=== PATIENT | female | born 1975 | race Caucasian/White ===

== ENCOUNTER 2020-02-26 12:03 | Emergency (ER) | payer SELFPAY ==
[~2020-02-26] VITALS: Ht 149.9 cm; Wt 45.4 kg
== END 2020-02-26 14:10 | disposition home or self-care (01) ==
LOC: ER 12:14
DX: R51.9 Headache, unspecified (principal); W01.198A Fall on same level from slipping, tripping and stumbling with subsequent striking against other object, initial encounter; Y93.01 Activity, walking, marching and hiking; Y92.008 Other place in unspecified non-institutional (private) residence as the place of occurrence of the external cause; R91.8 Other nonspecific abnormal finding of lung field; Z87.891 Personal history of nicotine dependence
CPT/HCPCS: 70450; 72125; 99283

== ENCOUNTER 2021-04-11 10:03 | Emergency (ER) | payer SELFPAY ==
[~2021-04-11] VITALS: Ht 149.9 cm; Wt 63.5 kg
[2021-04-11] MEDS ORDERED: KETOROLAC TROMETHAMINE 30 MG/ML VIAL IV STA (11:07)
[2021-04-11] MEDS ORDERED: ONDANSETRON HCL INJ 2MG/ML 2ML 2 MG/ML VIAL IV STA (11:07)
[2021-04-11] MEDS ORDERED: TAMSULOSIN HCL 0.4 MG CAP PO ONE (11:15)
[2021-04-11] MEDS ORDERED: SODIUM CHLORIDE 0.9% 1000ML 1,000 ML IV ONE (11:15)
[2021-04-11 11:18] LABS: CLARITY,URINE CLOUDY (CLEAR); COLOR,URINE YELLOW (YELLOW); KETONES,URINE NEGATIVE (NEGATIVE); LEUKOCYTE ESTERASE ,URINE LARGE (NEGATIVE); NITRITE,URINE NEGATIVE (NEGATIVE); PROTEIN,URINE DIPSTICK 1+ (NEGATIVE); URINE UROBILINOGEN 0.2 mg/dL (0.2 - 1)
[2021-04-11 11:28] LABS: BACTERIA,URINE FEW /HPF; EPITHELIAL CELLS,URINE FEW /LPF; RBC,URINE 21-50 /HPF (0-5); WBC,URINE (MAN) >50 /HPF (0-5)
[2021-04-11] MEDS ORDERED: CEFTRIAXONE 1 GM VIAL IM ONE (12:00)
[2021-04-11 12:10] LABS: BASOPHILS # (AUTO) 0.1 (0.0-0.1); BASOPHILS % 0.5 % (0.0-1.0); EOSINOPHILS # (AUTO) 0.2 (0.0-0.4); EOSINOPHILS % 1.6 % (0.0-6.0); HEMATOCRIT 41.2 % (34.2-44.1); HEMOGLOBIN 12.9 g/dL (12.0-16.0); LYMPHOCYTES # (AUTO) 2.4 (1.0-3.2); LYMPHOCYTES % 23.9 % (18.0-39.1); MEAN CORPUSCULAR HEMOGLOBIN 29.2 pg (28-32); MEAN CORPUSCULAR HGB CONC 31.3 g/dL (31-35); MEAN CORPUSCULAR VOLUME 93.2 fL (81-99); MONOCYTES # (AUTO) 0.6 (0.2-0.8); MONOCYTES % 6.1 % (4.4-11.3); NEUTROPHILS # (AUTO) 6.8 (2.1-6.9); NEUTROPHILS % 67.6 % (38.7-80.0); PLATELET COUNT 284 x10e3/uL (140-360); RED BLOOD COUNT 4.42 x10e6/uL (3.6-5.1); RED CELL DISTRIBUTION WIDTH 12.8 % (11.7-14.4)
[2021-04-11] MEDS ORDERED: SODIUM CHLORIDE 0.9% 50ML 50 ML ONE (12:15)
[2021-04-11 12:28] LABS: ANION GAP 8.3 mmol/L (8-16); CALCIUM 9.3 mg/dL (8.4-10.2); CREATININE, SERUM 0.69 mg/dL (0.57-1.11); POTASSIUM 4.3 mmol/L (3.5-5.1)
[2021-04-11] MEDS ORDERED: FLOMAX0.4 MG PO (12:47)
[2021-04-11] MEDS ORDERED: ONDANSETRON ODT4 MG PO (12:47)
[2021-04-11] MEDS ORDERED: KETOROLAC TROME10 MG PEG (12:47)
[2021-04-11] MEDS ORDERED: CEFDINIR300 MG PO (12:47)
== END 2021-04-11 13:16 | disposition home or self-care (01) ==
LOC: ER 10:33
DX: R30.0 Dysuria (principal); N39.0 Urinary tract infection, site not specified; N20.0 Calculus of kidney; R10.30 Lower abdominal pain, unspecified
CPT/HCPCS: 36415; 74176; 80048; 81001; 81025; 85025; 87086; 99284; J0696; J1885; J2405; J7030; 87186

== ENCOUNTER 2021-04-15 13:53 | Emergency (ER) | payer SELFPAY ==
[~2021-04-15] VITALS: Ht 149.9 cm; Wt 63.5 kg
[~2021-04-15 13:53] MED LIST: CEFDINIR300 MG PO; FLOMAX0.4 MG PO; KETOROLAC TROME10 MG PEG; ONDANSETRON ODT4 MG PO
[2021-04-15] MEDS ORDERED: SODIUM CHLORIDE 0.9% 1000ML 1,000 ML IV STA (14:14)
[2021-04-15] MEDS ORDERED: ONDANSETRON HCL INJ 2MG/ML 2ML 2 MG/ML VIAL IV STA (14:14)
[2021-04-15 14:33] LABS: BASOPHILS % 0.7 % (0.0-1.0); EOSINOPHILS # (AUTO) 0.1 (0.0-0.4); EOSINOPHILS % 2.1 % (0.0-6.0); HEMATOCRIT 39.3 % (34.2-44.1); HEMOGLOBIN 12.7 g/dL (12.0-16.0); LYMPHOCYTES # (AUTO) 2.6 (1.0-3.2); LYMPHOCYTES % 42.4 % (18.0-39.1); MEAN CORPUSCULAR HEMOGLOBIN 29.3 pg (28-32); MEAN CORPUSCULAR HGB CONC 32.3 g/dL (31-35); MEAN CORPUSCULAR VOLUME 90.6 fL (81-99); MONOCYTES # (AUTO) 0.4 (0.2-0.8); MONOCYTES % 6.6 % (4.4-11.3); NEUTROPHILS # (AUTO) 2.9 (2.1-6.9); NEUTROPHILS % 47.9 % (38.7-80.0); PLATELET COUNT 275 x10e3/uL (140-360); RED BLOOD COUNT 4.34 x10e6/uL (3.6-5.1); RED CELL DISTRIBUTION WIDTH 12.4 % (11.7-14.4)
[2021-04-15 14:45] LABS: PROTHROMBIN TIME 13.9 seconds (11.9-14.5)
[2021-04-15 14:46] LABS: CLARITY,URINE HAZY (CLEAR); COLOR,URINE YELLOW (YELLOW)
[2021-04-15 14:46] LABS: PARTIAL THROMBOPLASTIN TIME 28.7 seconds (23.8-35.5)
[2021-04-15 14:47] LABS: KETONES,URINE NEGATIVE (NEGATIVE); LEUKOCYTE ESTERASE ,URINE NEGATIVE (NEGATIVE); NITRITE,URINE NEGATIVE (NEGATIVE); PROTEIN,URINE DIPSTICK NEGATIVE (NEGATIVE); URINE UROBILINOGEN 0.2 mg/dL (0.2 - 1)
[2021-04-15 14:52] LABS: BACTERIA,URINE FEW /HPF; EPITHELIAL CELLS,URINE FEW /LPF; RBC,URINE 0-5 /HPF (0-5); WBC,URINE (MAN) 0-5 /HPF (0-5)
[2021-04-15 14:57] LABS: ALBUMIN/GLOBULIN RATIO 1.1 (0.8-2.0); ANION GAP 7.8 mmol/L (8-16); CALCIUM 9.8 mg/dL (8.4-10.2); CREATININE, SERUM 0.86 mg/dL (0.57-1.11); MAGNESIUM 1.7 MG/DL (1.3-2.1); POTASSIUM 3.8 mmol/L (3.5-5.1)
[2021-04-15] MEDS ORDERED: KETOROLAC TROMETHAMINE 30 MG/ML VIAL IV STA (16:12)
[2021-04-15] MEDS ORDERED: SODIUM CHLORIDE 0.9% 1000ML 1,000 ML IV SCH (16:15)
[2021-04-15] MEDS ORDERED: ONDANSETRON HCL INJ 2MG/ML 2ML 2 MG/ML VIAL IV ONE (16:45)
== END 2021-04-15 17:37 | disposition home or self-care (01) ==
LOC: ER 14:15
DX: K62.5 Hemorrhage of anus and rectum (principal); R10.9 Unspecified abdominal pain; R11.0 Nausea; Z87.442 Personal history of urinary calculi
CPT/HCPCS: 36415; 74176; 80053; 81001; 83690; 83735; 85025; 85610; 85730; 87040; 87086; 99284; C9113; J2405; J7030

== ENCOUNTER 2021-04-25 12:06 | Emergency (ER) | payer SELFPAY ==
[~2021-04-25] VITALS: Ht 149.9 cm; Wt 63.5 kg
[2021-04-25] MEDS ORDERED: SODIUM CHLORIDE 0.9% 1000ML 1,000 ML IV SCH (12:30)
[2021-04-25 13:09] LABS: BASOPHILS # (AUTO) 0.1 (0.0-0.1); BASOPHILS % 0.8 % (0.0-1.0); EOSINOPHILS # (AUTO) 0.1 (0.0-0.4); EOSINOPHILS % 1.7 % (0.0-6.0); HEMATOCRIT 39.9 % (34.2-44.1); HEMOGLOBIN 12.7 g/dL (12.0-16.0); LYMPHOCYTES # (AUTO) 2.5 (1.0-3.2); LYMPHOCYTES % 32.6 % (18.0-39.1); MEAN CORPUSCULAR HEMOGLOBIN 29.2 pg (28-32); MEAN CORPUSCULAR HGB CONC 31.8 g/dL (31-35); MEAN CORPUSCULAR VOLUME 91.7 fL (81-99); MONOCYTES # (AUTO) 0.5 (0.2-0.8); MONOCYTES % 6.3 % (4.4-11.3); NEUTROPHILS # (AUTO) 4.5 (2.1-6.9); NEUTROPHILS % 58.3 % (38.7-80.0); PLATELET COUNT 240 x10e3/uL (140-360); RED BLOOD COUNT 4.35 x10e6/uL (3.6-5.1); RED CELL DISTRIBUTION WIDTH 12.6 % (11.7-14.4)
[2021-04-25 13:22] LABS: COLOR,URINE YELLOW (YELLOW); KETONES,URINE NEGATIVE (NEGATIVE); LEUKOCYTE ESTERASE ,URINE 2+ (NEGATIVE); NITRITE,URINE NEGATIVE (NEGATIVE); PROTEIN,URINE DIPSTICK NEGATIVE (NEGATIVE)
[2021-04-25 13:23] LABS: URINE UROBILINOGEN 0.2 mg/dL (0.2 - 1)
[2021-04-25 13:30] LABS: ALBUMIN 4.5 g/dL (3.5-5.0); ALBUMIN/GLOBULIN RATIO 1.2 (0.8-2.0); CALCIUM 9.5 mg/dL (8.4-10.2); CREATININE, SERUM 0.84 mg/dL (0.57-1.11)
[2021-04-25 13:39] LABS: BACTERIA,URINE MANY /HPF; EPITHELIAL CELLS,URINE FEW /LPF; RBC,URINE 21-50 /HPF (0-5); RENAL EPITHELIAL CELLS,URINE MODERATE; TRANSITIONAL EPI CELLS,URINE MODERATE; WBC,URINE (MAN) >50 /HPF (0-5)
[2021-04-25 13:40] LABS: CLARITY,URINE CLOUDY (CLEAR)
[2021-04-25] MEDS ORDERED: KETOROLAC TROME10 MG PO (14:15)
[2021-04-25] MEDS ORDERED: CIPRO500 MG PO (14:15)
[2021-04-25 14:25] VITALS: BP 132/76
== END 2021-04-25 14:27 | disposition home or self-care (01) ==
LOC: ER 12:22
DX: R10.30 Lower abdominal pain, unspecified (principal); N39.0 Urinary tract infection, site not specified; N20.0 Calculus of kidney; K57.30 Diverticulosis of large intestine without perforation or abscess without bleeding
CPT/HCPCS: 36415; 74176; 80053; 81001; 85025; 87086; 99284; J7030; 87186

== ENCOUNTER 2021-11-16 11:02 | Emergency (ER) | payer SELFPAY ==
[~2021-11-16] VITALS: Ht 149.9 cm; Wt 63.5 kg
[~2021-11-16 11:02] MED LIST changes: +CIPRO500 MG PO; +KETOROLAC TROME10 MG PO
[2021-11-16] MEDS ORDERED: CEFPODOXIME PR100 MG PO (11:17)
== END 2021-11-16 11:18 | disposition home or self-care (01) ==
LOC: ER 11:06
DX: R30.0 Dysuria (principal); N39.0 Urinary tract infection, site not specified; R31.9 Hematuria, unspecified; Z87.442 Personal history of urinary calculi
CPT/HCPCS: 99282

== ENCOUNTER 2022-06-06 08:28 | Inpatient (IN) | payer OTHER ==
[~2022-06-06] VITALS: Ht 149.9 cm; Wt 63.5 kg
[~2022-06-06 08:28] MED LIST changes: +CEFPODOXIME PR100 MG PO
[2022-06-06] MEDS ORDERED: SODIUM CHLORIDE 0.9% 1000ML 1,000 ML IV STA (08:45)
[2022-06-06] MEDS ORDERED: ASPIRIN 81 MG CHEW TAB PO ONE (10:00)
[2022-06-06 10:25] LABS: BASOPHILS # (AUTO) 0.1 (0.0-0.1); BASOPHILS % 1.1 % (0.0-1.0); EOSINOPHILS # (AUTO) 0.2 (0.0-0.4); EOSINOPHILS % 3.3 % (0.0-6.0); HEMATOCRIT 42.5 % (34.2-44.1); HEMOGLOBIN 14.2 g/dL (12.0-16.0); LYMPHOCYTES # (AUTO) 2.7 (1.0-3.2); LYMPHOCYTES % 41.6 % (18.0-39.1); MEAN CORPUSCULAR HEMOGLOBIN 29.7 pg (28-32); MEAN CORPUSCULAR HGB CONC 33.4 g/dL (31-35); MEAN CORPUSCULAR VOLUME 88.9 fL (81-99); MONOCYTES # (AUTO) 0.4 (0.2-0.8); MONOCYTES % 5.9 % (4.4-11.3); PLATELET COUNT 246 x10e3/uL (140-360); RED BLOOD COUNT 4.78 x10e6/uL (3.6-5.1); RED CELL DISTRIBUTION WIDTH 12.6 % (11.7-14.4)
[2022-06-06 10:37] LABS: CLARITY,URINE CLEAR (CLEAR); COLOR,URINE YELLOW (YELLOW); LEUKOCYTE ESTERASE ,URINE NEGATIVE (NEGATIVE)
[2022-06-06 10:38] LABS: KETONES,URINE NEGATIVE (NEGATIVE); NITRITE,URINE NEGATIVE (NEGATIVE); PROTEIN,URINE DIPSTICK NEGATIVE (NEGATIVE); URINE UROBILINOGEN 0.2 mg/dL (0.2 - 1)
[2022-06-06 10:39] LABS: AMPHETAMINES SCREEN,URINE NEGATIVE (NEGATIVE); BENZODIAZEPINES SCREEN,URINE NEGATIVE (NEGATIVE); PHENCYCLIDINE SCREEN,URINE NEGATIVE (NEGATIVE)
[2022-06-06 10:44] LABS: ALANINE AMINOTRANSFERASE 21 IU/L (0-55); ALBUMIN 4.2 g/dL (3.5-5.0); ALBUMIN/GLOBULIN RATIO 1.1 (0.8-2.0); ALKALINE PHOSPHATASE 122 IU/L (40-150); ANION GAP 14.7 mmol/L (8-16); BLOOD UREA NITROGEN 13 mg/dL (7-26); BUN/CREATININE RATIO 18 (6-25); CALCIUM 9.4 mg/dL (8.4-10.2); CARBON DIOXIDE 23 mmol/L (22-29); CHLORIDE 105 mmol/L (98-107); CREATINE KINASE 79 IU/L (29-168); CREATININE, SERUM 0.72 mg/dL (0.57-1.11); GLUCOSE 103 mg/dL (74-118); MAGNESIUM 1.9 MG/DL (1.3-2.1); POTASSIUM 3.7 mmol/L (3.5-5.1); SODIUM 139 mmol/L (136-145)
[2022-06-06 10:49] LABS: BACTERIA,URINE FEW /HPF; EPITHELIAL CELLS,URINE FEW /LPF; WBC,URINE (MAN) 0-5 /HPF (0-5)
[2022-06-06 10:49] LABS: INR 0.86
[2022-06-06 10:50] LABS: PARTIAL THROMBOPLASTIN TIME 28.8 seconds (23.8-35.5)
[2022-06-06 11:04] LABS: THYROID STIMULATING HORMONE 4.313 uIU/mL (0.350-4.940)
[2022-06-06] MEDS ORDERED: SODIUM CHLORIDE 0.9% 0 ML ONE (12:19)
[2022-06-06] MEDS ORDERED: IOPAMIDOL 370 MG/ML 100 ML INFUS..BTL INJ ONE (12:19)
[2022-06-06 17:00] VITALS: BP 187/117
[2022-06-06 17:03] VITALS: BP 187/117
[2022-06-06 17:34] VITALS: BP 187/117
[2022-06-06] MEDS ORDERED: AMLODIPINE BESYLATE 5 MG TAB PO ONE (18:00)
[2022-06-06 18:27] LABS: CREATINE KINASE 71 IU/L (29-168)
[2022-06-06 20:00] VITALS: BP 168/98
[2022-06-06 20:24] VITALS: BP 187/117
[2022-06-06] MEDS ORDERED: CLOPIDOGREL BISULFATE 75 MG TAB PO ONE (20:45)
[2022-06-06] MEDS: ATORVASTATIN 40 MG TAB PO SCH (21:50)
[2022-06-07] VITALS (9 sets, daily range): BP systolic 148–183; BP diastolic 94–107
[2022-06-07] MEDS: ACETAMINOPHEN 325 MG TAB PO PRN ×3 (05:09→22:29)
[2022-06-07 06:07] LABS: BASOPHILS # (AUTO) 0.1 (0.0-0.1); BASOPHILS % 0.8 % (0.0-1.0); EOSINOPHILS # (AUTO) 0.2 (0.0-0.4); EOSINOPHILS % 2.8 % (0.0-6.0); HEMOGLOBIN 14.9 g/dL (12.0-16.0); LYMPHOCYTES # (AUTO) 2.7 (1.0-3.2); LYMPHOCYTES % 36.7 % (18.0-39.1); MEAN CORPUSCULAR HEMOGLOBIN 29.5 pg (28-32); MEAN CORPUSCULAR HGB CONC 33.1 g/dL (31-35); MEAN CORPUSCULAR VOLUME 89.1 fL (81-99); MONOCYTES # (AUTO) 0.5 (0.2-0.8); MONOCYTES % 6.3 % (4.4-11.3); NEUTROPHILS % 53.3 % (38.7-80.0); PLATELET COUNT 227 x10e3/uL (140-360); RED BLOOD COUNT 5.05 x10e6/uL (3.6-5.1); RED CELL DISTRIBUTION WIDTH 12.6 % (11.7-14.4)
[2022-06-07 06:34] LABS: ANION GAP 14.6 mmol/L (8-16); CHOL/HDL RATIO 3.4 (3.0-3.6); CREATININE, SERUM 0.67 mg/dL (0.57-1.11); POTASSIUM 3.6 mmol/L (3.5-5.1)
[2022-06-07 07:16] LABS: CREATINE KINASE MB 1.1 ng/mL (0-5.0)
[2022-06-07] MEDS: ONDANSETRON HCL INJ 2MG/ML 2ML 2 MG/ML VIAL IV PRN ×2 (08:33→23:07)
[2022-06-07] MEDS: ASPIRIN 81 MG ENTERIC COATED PO SCH (09:39)
[2022-06-07] MEDS: AMLODIPINE BESYLATE 5 MG TAB PO SCH (09:40)
[2022-06-07] MEDS: CLOPIDOGREL BISULFATE 75 MG TAB PO SCH (09:40)
[2022-06-07 14:44] LABS: CREATINE KINASE MB 1.2 ng/mL (0-5.0)
[2022-06-07] MEDS: ATORVASTATIN 40 MG TAB PO SCH (22:09)
[2022-06-08] VITALS (7 sets, daily range): BP systolic 114–143; BP diastolic 62–101
[2022-06-08 07:46] LABS: BASOPHILS # (AUTO) 0.1 (0.0-0.1); BASOPHILS % 0.7 % (0.0-1.0); EOSINOPHILS # (AUTO) 0.2 (0.0-0.4); EOSINOPHILS % 1.8 % (0.0-6.0); HEMATOCRIT 45.4 % (34.2-44.1); HEMOGLOBIN 15.3 g/dL (12.0-16.0); LYMPHOCYTES # (AUTO) 3.6 (1.0-3.2); LYMPHOCYTES % 43.7 % (18.0-39.1); MEAN CORPUSCULAR HEMOGLOBIN 29.8 pg (28-32); MEAN CORPUSCULAR HGB CONC 33.7 g/dL (31-35); MEAN CORPUSCULAR VOLUME 88.3 fL (81-99); MONOCYTES # (AUTO) 0.5 (0.2-0.8); MONOCYTES % 6.2 % (4.4-11.3); NEUTROPHILS # (AUTO) 3.9 (2.1-6.9); NEUTROPHILS % 47.2 % (38.7-80.0); PLATELET COUNT 284 x10e3/uL (140-360); RED BLOOD COUNT 5.14 x10e6/uL (3.6-5.1); RED CELL DISTRIBUTION WIDTH 12.4 % (11.7-14.4)
[2022-06-08 08:10] LABS: ANION GAP 15.9 mmol/L (8-16); CALCIUM 9.7 mg/dL (8.4-10.2); CREATININE, SERUM 0.79 mg/dL (0.57-1.11); POTASSIUM 3.9 mmol/L (3.5-5.1)
[2022-06-08] MEDS: CLOPIDOGREL BISULFATE 75 MG TAB PO SCH (09:11)
[2022-06-08] MEDS: ASPIRIN 81 MG ENTERIC COATED PO SCH (09:11)
[2022-06-08] MEDS: AMLODIPINE BESYLATE 5 MG TAB PO SCH (09:11)
[2022-06-08] MEDS: ATORVASTATIN 40 MG TAB PO SCH (21:00)
[2022-06-09] VITALS (8 sets, daily range): BP systolic 114–143; BP diastolic 72–88
[2022-06-09] MEDS: CLOPIDOGREL BISULFATE 75 MG TAB PO SCH (08:56)
[2022-06-09] MEDS: ASPIRIN 81 MG ENTERIC COATED PO SCH (08:56)
[2022-06-09] MEDS: AMLODIPINE BESYLATE 5 MG TAB PO SCH (08:57)
[2022-06-09] MEDS: ATORVASTATIN 40 MG TAB PO SCH (22:51)
[2022-06-10] VITALS (8 sets, daily range): BP systolic 129–147; BP diastolic 79–92
[2022-06-10] MEDS: AMLODIPINE BESYLATE 5 MG TAB PO SCH (09:38)
[2022-06-10] MEDS: CLOPIDOGREL BISULFATE 75 MG TAB PO SCH (09:39)
[2022-06-10] MEDS: ASPIRIN 81 MG ENTERIC COATED PO SCH (09:39)
[2022-06-10] MEDS ORDERED: ONDANSETRON HCL 4 MG ORAL DISINTEGRATING TAB PO PRN (13:30)
[2022-06-10] MEDS: ATORVASTATIN 40 MG TAB PO SCH (20:47)
[2022-06-11 05:42] VITALS: BP 130/79
[2022-06-11 06:38] VITALS: BP 130/79
[2022-06-11 08:00] VITALS: BP 130/79
[2022-06-11 08:41] VITALS: BP 120/77
[2022-06-11] MEDS: CLOPIDOGREL BISULFATE 75 MG TAB PO SCH (09:53)
[2022-06-11] MEDS: AMLODIPINE BESYLATE 5 MG TAB PO SCH (09:53)
[2022-06-11] MEDS: ASPIRIN 81 MG ENTERIC COATED PO SCH (09:53)
[2022-06-11 11:36] VITALS: BP 149/95
[2022-06-11] MEDS ORDERED: NORVASC5 MG PO (11:37)
[2022-06-11] MEDS ORDERED: ATORVASTATIN CA40 MG PO (11:37)
[2022-06-11] MEDS ORDERED: PLAVIX75 MG PO (11:37)
[2022-06-11] MEDS ORDERED: ONDANSETRON ODT4 MG PO (11:37)
[2022-06-11] MEDS ORDERED: ASPIRIN EC81 MG PO (11:37)
[2022-06-11] MEDS ORDERED: ACETAMINOPHEN325 M1 PO (11:37)
== END 2022-06-11 13:10 | disposition home or self-care (01) | DRG 65 ==
LOC: ER 08:35 → ERHOLD 11:14 → MED/SURG2 16:06
PROVIDERS: ADMIT Internal Medicine; ATTEND Internal Medicine
DX: I63.89 Other cerebral infarction (principal); G81.94 Hemiplegia, unspecified affecting left nondominant side; Z74.09 Other reduced mobility; I10 Essential (primary) hypertension; Z20.822 Contact with and (suspected) exposure to COVID-19; Z59.7 Insufficient social insurance and welfare support; Z91.14 Patient's other noncompliance with medication regimen; E78.5 Hyperlipidemia, unspecified; R26.9 Unspecified abnormalities of gait and mobility
CPT/HCPCS: 0223U; 36415; 70450; 70496; 70498; 70551; 71045; 80048; 80053; 80061; 80307; 81001; 82550; 82553; 83735; 84443; 84484; 85025; 85610; 85730; 93005; 93306; 95819; 99284; J2405; J7030; J7050; Q9967

== ENCOUNTER 2022-06-19 10:58 | Outpatient (RCR) | payer OTHER ==
[~2022-06-19 10:58] MED LIST changes: +ACETAMINOPHEN325 M1 PO; +ASPIRIN EC81 MG PO; +ATORVASTATIN CA40 MG PO; +NORVASC5 MG PO; +PLAVIX75 MG PO
== END 2022-06-28 ==
LOC: PT 10:58
PROVIDERS: ATTEND Nurse Practitioner Acute Care
DX: I63.531 Cerebral infarction due to unspecified occlusion or stenosis of right posterior cerebral artery (principal); M62.81 Muscle weakness (generalized)

== ENCOUNTER 2022-06-26 20:24 | Emergency (ER) | payer OTHER ==
[~2022-06-26] VITALS: Ht 149.9 cm; Wt 63.5 kg
[2022-06-26 21:11] LABS: BASOPHILS # (AUTO) 0.1 (0.0-0.1); BASOPHILS % 0.5 % (0.0-1.0); EOSINOPHILS # (AUTO) 0.1 (0.0-0.4); EOSINOPHILS % 0.9 % (0.0-6.0); HEMATOCRIT 41.7 % (34.2-44.1); HEMOGLOBIN 13.6 g/dL (12.0-16.0); LYMPHOCYTES # (AUTO) 2.8 (1.0-3.2); LYMPHOCYTES % 28.5 % (18.0-39.1); MEAN CORPUSCULAR HEMOGLOBIN 29.5 pg (28-32); MEAN CORPUSCULAR HGB CONC 32.6 g/dL (31-35); MEAN CORPUSCULAR VOLUME 90.5 fL (81-99); MONOCYTES # (AUTO) 0.4 (0.2-0.8); MONOCYTES % 3.6 % (4.4-11.3); NEUTROPHILS # (AUTO) 6.5 (2.1-6.9); NEUTROPHILS % 66.3 % (38.7-80.0); PLATELET COUNT 245 x10e3/uL (140-360); RED BLOOD COUNT 4.61 x10e6/uL (3.6-5.1); RED CELL DISTRIBUTION WIDTH 12.5 % (11.7-14.4)
[2022-06-26 21:30] LABS: ALANINE AMINOTRANSFERASE 18 IU/L (0-55); ALBUMIN 4.2 g/dL (3.5-5.0); ALBUMIN/GLOBULIN RATIO 1.2 (0.8-2.0); ALKALINE PHOSPHATASE 117 IU/L (40-150); ANION GAP 18.3 mmol/L (8-16); BLOOD UREA NITROGEN 14 mg/dL (7-26); BUN/CREATININE RATIO 17 (6-25); CARBON DIOXIDE 21 mmol/L (22-29); CHLORIDE 103 mmol/L (98-107); CREATINE KINASE 74 IU/L (29-168); CREATININE, SERUM 0.82 mg/dL (0.57-1.11); GLUCOSE 169 mg/dL (74-118); POTASSIUM 3.3 mmol/L (3.5-5.1); SODIUM 139 mmol/L (136-145)
[2022-06-26 21:32] LABS: CLARITY,URINE CLEAR (CLEAR); COLOR,URINE YELLOW (YELLOW); KETONES,URINE NEGATIVE (NEGATIVE); LEUKOCYTE ESTERASE ,URINE NEGATIVE (NEGATIVE); NITRITE,URINE NEGATIVE (NEGATIVE); PROTEIN,URINE DIPSTICK NEGATIVE (NEGATIVE)
[2022-06-26 21:33] LABS: AMPHETAMINES SCREEN,URINE NEGATIVE (NEGATIVE); BENZODIAZEPINES SCREEN,URINE NEGATIVE (NEGATIVE); PHENCYCLIDINE SCREEN,URINE NEGATIVE (NEGATIVE); URINE UROBILINOGEN 0.2 mg/dL (0.2 - 1)
[2022-06-26 21:42] LABS: BACTERIA,URINE RARE /HPF; EPITHELIAL CELLS,URINE FEW /LPF; RBC,URINE 0-5 /HPF (0-5)
[2022-06-27 01:09] VITALS: BP 136/79
== END 2022-06-27 01:11 | disposition home or self-care (01) ==
LOC: ER 20:57
DX: R06.02 Shortness of breath (principal); R07.9 Chest pain, unspecified; R60.9 Edema, unspecified; R51.9 Headache, unspecified; I10 Essential (primary) hypertension; Z86.73 Personal history of transient ischemic attack (TIA), and cerebral infarction without residual deficits; Z87.442 Personal history of urinary calculi
CPT/HCPCS: 36415; 70450; 71045; 80053; 80307; 81001; 81025; 82550; 82553; 83880; 84484; 85025; 93005; 99284; U0002

== ENCOUNTER 2022-07-01 07:39 | Outpatient (RCR) | payer OTHER | END 2022-07-28 | LOC: PT 07:39 | PROVIDERS: ATTEND Internal Medicine | DX: I69.354 Hemiplegia and hemiparesis following cerebral infarction affecting left non-dominant side (principal); I63.531 Cerebral infarction due to unspecified occlusion or stenosis of right posterior cerebral artery; M62.81 Muscle weakness (generalized) ==

== ENCOUNTER 2022-07-11 10:10 | Emergency (ER) | payer OTHER ==
[~2022-07-11] VITALS: Ht 149.9 cm; Wt 63.5 kg
[2022-07-11] MEDS ORDERED: ASPIRIN 81 MG CHEW TAB PO ONE (10:45)
[2022-07-11 11:13] LABS: BASOPHILS # (AUTO) 0.1 (0.0-0.1); EOSINOPHILS # (AUTO) 0.2 (0.0-0.4); EOSINOPHILS % 2.3 % (0.0-6.0); HEMATOCRIT 41.6 % (34.2-44.1); HEMOGLOBIN 13.9 g/dL (12.0-16.0); LYMPHOCYTES # (AUTO) 2.5 (1.0-3.2); LYMPHOCYTES % 35.8 % (18.0-39.1); MEAN CORPUSCULAR HGB CONC 33.4 g/dL (31-35); MEAN CORPUSCULAR VOLUME 89.8 fL (81-99); MONOCYTES # (AUTO) 0.5 (0.2-0.8); MONOCYTES % 6.7 % (4.4-11.3); NEUTROPHILS # (AUTO) 3.7 (2.1-6.9); NEUTROPHILS % 53.8 % (38.7-80.0); PLATELET COUNT 244 x10e3/uL (140-360); RED BLOOD COUNT 4.63 x10e6/uL (3.6-5.1); RED CELL DISTRIBUTION WIDTH 12.4 % (11.7-14.4)
[2022-07-11 11:32] LABS: ALANINE AMINOTRANSFERASE 22 IU/L (0-55); ALBUMIN 4.2 g/dL (3.5-5.0); ALBUMIN/GLOBULIN RATIO 1.1 (0.8-2.0); ALKALINE PHOSPHATASE 136 IU/L (40-150); BLOOD UREA NITROGEN 9 mg/dL (7-26); BUN/CREATININE RATIO 12 (6-25); CALCIUM 9.5 mg/dL (8.4-10.2); CARBON DIOXIDE 25 mmol/L (22-29); CHLORIDE 103 mmol/L (98-107); CREATINE KINASE 75 IU/L (29-168); CREATININE, SERUM 0.75 mg/dL (0.57-1.11); GLUCOSE 116 mg/dL (74-118); SODIUM 138 mmol/L (136-145)
[2022-07-11] MEDS ORDERED: IOPAMIDOL 370 MG/ML 100 ML INFUS..BTL INJ ONE (11:57)
[2022-07-11 17:11] VITALS: BP 109/80
== END 2022-07-11 17:00 | disposition home or self-care (01) ==
LOC: ER 10:17
DX: R07.9 Chest pain, unspecified (principal); R60.9 Edema, unspecified; I10 Essential (primary) hypertension; Z86.73 Personal history of transient ischemic attack (TIA), and cerebral infarction without residual deficits
CPT/HCPCS: 36415; 71260; 80048; 80053; 81025; 82550; 82553; 83880; 84484; 85025; 85379; 93005; 93970; 99284; Q9967

== ENCOUNTER 2023-10-29 08:48 | Emergency (ER) | payer OTHER ==
[~2023-10-29] VITALS: Ht 149.9 cm; Wt 86.2 kg
[~2023-10-29 08:48] MED LIST changes: +PEPCID20 MG PO; +ULTRAM 50MG50 MG PO
[2023-10-29 08:51] VITALS: TEMP 97.7
[2023-10-29] MEDS ORDERED: SODIUM CHLORIDE FLUSH 10 ML SYR IV PRN (09:00)
[2023-10-29 09:31] LABS: BASOPHILS # (AUTO) 0.1 (0.0-0.1); EOSINOPHILS # (AUTO) 0.3 (0.0-0.4); EOSINOPHILS % 4.1 % (0.0-6.0); HEMATOCRIT 40.6 % (34.2-44.1); HEMOGLOBIN 13.4 g/dL (12.0-16.0); LYMPHOCYTES # (AUTO) 2.9 (1.0-3.2); LYMPHOCYTES % 46.1 % (18.0-39.1); MEAN CORPUSCULAR HEMOGLOBIN 29.9 pg (28-32); MEAN CORPUSCULAR VOLUME 90.6 fL (81-99); MONOCYTES # (AUTO) 0.3 (0.2-0.8); MONOCYTES % 4.9 % (4.4-11.3); NEUTROPHILS # (AUTO) 2.7 (2.1-6.9); NEUTROPHILS % 43.7 % (38.7-80.0); PLATELET COUNT 242 x10e3/uL (140-360); RED BLOOD COUNT 4.48 x10e6/uL (3.6-5.1); RED CELL DISTRIBUTION WIDTH 12.8 % (11.7-14.4); WHITE BLOOD COUNT 6.27 x10e3/uL (4.8-10.8)
[2023-10-29 09:48] LABS: ALANINE AMINOTRANSFERASE 33 IU/L (0-55); ALBUMIN 4.2 g/dL (3.5-5.0); ALBUMIN/GLOBULIN RATIO 1.1 (0.8-2.0); ALKALINE PHOSPHATASE 89 IU/L (40-150); BILIRUBIN,TOTAL 0.2 mg/dL (0.2-1.2); BLOOD UREA NITROGEN 12 mg/dL (7-26); BUN/CREATININE RATIO 14 (6-25); CALCIUM 9.8 mg/dL (8.4-10.2); CARBON DIOXIDE 21 mmol/L (22-29); CHLORIDE 103 mmol/L (98-107); CREATININE, SERUM 0.86 mg/dL (0.57-1.11); EST GLOMERULAR FILTRATION RATE 84 ML/MIN (>=60); GLUCOSE 156 mg/dL (74-118); SODIUM 137 mmol/L (136-145)
[2023-10-29 10:00] LABS: TROPONIN I < 0.001 ng/mL (0-0.300)
[2023-10-29] MEDS ORDERED: CYCLOBENZAPRINE5 MG PO (10:42)
[2023-10-29] MEDS ORDERED: PEPCID20 MG PO (10:43)
[2023-10-29] MEDS: ONDANSETRON HCL INJ 2MG/ML 2ML 2 MG/ML VIAL IV STA (10:57)
[2023-10-29] MEDS: ASPIRIN 325 MG TAB PO ONE (10:58)
[2023-10-29] MEDS: Morphine 4mg INJECTION 4 MG/ML INJ IV ONE (10:58)
[2023-10-29 11:56] VITALS: PULSE 66; RESP 15; O2SAT 97
== END 2023-10-29 13:14 | disposition home or self-care (01) ==
LOC: ER 08:58
DX: I10 Essential (primary) hypertension (principal); R07.89 Other chest pain; E03.9 Hypothyroidism, unspecified; Z87.442 Personal history of urinary calculi; Z86.73 Personal history of transient ischemic attack (TIA), and cerebral infarction without residual deficits
CPT/HCPCS: 36415; 71045; 80053; 84484; 85025; 93005; 94760; 99284; J2270; J2405

== ENCOUNTER 2023-11-06 22:11 | Observation (INO) | payer OTHER ==
[~2023-11-06] VITALS: Ht 149.9 cm; Wt 86.2 kg
[~2023-11-06 22:11] MED LIST changes: +CYCLOBENZAPRINE5 MG PO
[2023-11-06 22:50] LABS: BASOPHILS % 0.5 % (0.0-1.0); EOSINOPHILS # (AUTO) 0.2 (0.0-0.4); EOSINOPHILS % 2.7 % (0.0-6.0); HEMATOCRIT 35.9 % (34.2-44.1); HEMOGLOBIN 11.9 g/dL (12.0-16.0); LYMPHOCYTES # (AUTO) 3.5 (1.0-3.2); LYMPHOCYTES % 47.2 % (18.0-39.1); MEAN CORPUSCULAR HEMOGLOBIN 29.9 pg (28-32); MEAN CORPUSCULAR HGB CONC 33.1 g/dL (31-35); MEAN CORPUSCULAR VOLUME 90.2 fL (81-99); MONOCYTES # (AUTO) 0.5 (0.2-0.8); MONOCYTES % 6.2 % (4.4-11.3); NEUTROPHILS # (AUTO) 3.2 (2.1-6.9); NEUTROPHILS % 43.1 % (38.7-80.0); PLATELET COUNT 271 x10e3/uL (140-360); RED BLOOD COUNT 3.98 x10e6/uL (3.6-5.1); RED CELL DISTRIBUTION WIDTH 12.7 % (11.7-14.4); WHITE BLOOD COUNT 7.31 x10e3/uL (4.8-10.8)
[2023-11-06 23:17] LABS: ALBUMIN 4.4 g/dL (3.5-5.0); ALBUMIN/GLOBULIN RATIO 1.5 (0.8-2.0); BILIRUBIN,TOTAL 0.2 mg/dL (0.2-1.2); CALCIUM 9.7 mg/dL (8.4-10.2); CREATININE, SERUM 1.02 mg/dL (0.57-1.11); TOTAL PROTEIN 7.4 g/dL (6.5-8.1)
[2023-11-07 00:42] VITALS: PULSE 67; RESP 16; O2SAT 97
[2023-11-07] MEDS: ACETAMINOPHEN 325 MG TAB PO ONE ×2 (00:42)
[2023-11-07] MEDS ORDERED: SODIUM CHLORIDE FLUSH 10 ML SYR INJ PRN (00:45)
[2023-11-07] MEDS ORDERED: Morphine 4mg INJECTION 4 MG/ML INJ IV PRN (00:45)
[2023-11-07] MEDS ORDERED: ONDANSETRON HCL INJ 2MG/ML 2ML 2 MG/ML VIAL IV PRN (00:45)
[2023-11-07 06:55] LABS: CREATINE KINASE 95 IU/L (29-168)
[2023-11-07 07:06] LABS: TROPONIN I < 0.001 ng/mL (0-0.300)
[2023-11-07 07:20] VITALS: TEMP 98.4
[2023-11-07] MEDS ORDERED: TELMISARTAN20 MG PO (07:25)
[2023-11-07] MEDS ORDERED: LEVOTHYROXINE50 MCG PO (07:25)
[2023-11-07] MEDS: ASPIRIN 81 MG ENTERIC COATED PO SCH ×2 (09:00→09:53)
[2023-11-07 09:27] LABS: CHOL/HDL RATIO 3.9 (3.0-3.6)
[2023-11-07] MEDS: FAMOTIDINE 20 MG TAB PO SCH (09:53)
[2023-11-07] MEDS: TELMISARTAN 40 MG TAB PO SCH (09:53)
[2023-11-07 09:54] VITALS: PULSE 71; RESP 15
[2023-11-07] MEDS: LEVOTHYROXINE SODIUM 50 MCG TAB PO SCH (09:54)
[2023-11-07 12:26] VITALS: BP 148/98; PULSE 67; RESP 18; TEMP 97.9; O2SAT 99
[2023-11-07] MEDS: ACETAMINOPHEN 325 MG TAB PO PRN (12:26)
[2023-11-07 12:30] VITALS: BP 148/98; PULSE 67; RESP 18; TEMP 97.9; O2SAT 99
[2023-11-07 15:12] LABS: CREATINE KINASE 86 IU/L (29-168)
[2023-11-07 15:18] LABS: TROPONIN I < 0.001 ng/mL (0-0.300)
[2023-11-07 16:09] VITALS: BP 109/67; PULSE 59; RESP 18; TEMP 98.2; O2SAT 100
[2023-11-07] MEDS ORDERED: ASPIRIN EC81 MG PO (17:36)
[2023-11-07] MEDS ORDERED: LIPITOR20 MG PO (17:36)
[2023-11-07] MEDS ORDERED: MICARDIS40 MG PO (17:36)
[2023-11-07] MEDS ORDERED: ONDANSETRON HCL 4 MG ORAL DISINTEGRATING TAB PO PRN (18:30)
== END 2023-11-07 18:50 | disposition home or self-care (01) ==
LOC: ER 22:18 → ERHOLD 11-07 00:39 → MED/SURG 11-07 12:04
PROVIDERS: ADMIT Internal Medicine; ATTEND Internal Medicine
DX: R07.9 Chest pain, unspecified (principal); I10 Essential (primary) hypertension; E78.5 Hyperlipidemia, unspecified; I73.00 Raynaud's syndrome without gangrene; Z87.891 Personal history of nicotine dependence; Z87.442 Personal history of urinary calculi; E66.8 Other obesity; Z68.38 Body mass index [BMI] 38.0-38.9, adult; Z86.73 Personal history of transient ischemic attack (TIA), and cerebral infarction without residual deficits; E03.9 Hypothyroidism, unspecified; M85.80 Other specified disorders of bone density and structure, unspecified site
CPT/HCPCS: 36415 ×2; 71045; 80053; 80061; 82550; 84443; 84484 ×2; 85025; 93005; 93306; 94799; 99284; G0378; U0002